=== PATIENT | male | born 2000 | race African-American/Black ===

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

== ENCOUNTER 2019-03-15 20:44 | Emergency (ER) | payer OTHER | END 2019-03-15 23:26 | disposition home or self-care (01) | LOC: ERS 20:44 | DX: J10.1 Influenza due to other identified influenza virus with other respiratory manifestations (principal) | CPT/HCPCS: 87804; 99284 ==